=== PATIENT | male | born 1955 | race Caucasian/White ===

== ENCOUNTER 2016-11-20 05:47 | Observation (INO) | payer BC, MEDICAID ==
[2016-11-20] MEDS ORDERED: Aspirin 81 MG Tab.Chew PO ONE (06:00)
[2016-11-20] MEDS ORDERED: Metoprolol Tartrate 5 MG/5 ML SDV IVPUSH ONE ×3 (06:01→21:13)
[2016-11-20] MEDS ORDERED: Sodium Chloride 0.9% 10 ML Syringe FLUSH PRN (06:01)
[2016-11-20] MEDS ORDERED: Sodium Chloride 0.9% 2.5 ML Syringe FLUSH PRN (06:01)
--- NOTE | 2016-11-20 06:06 | EDM.PDOC ---
ED HPI GENERAL MEDICAL PROBLEM - General Chief Complaint: Chest Pain Stated Complaint: CHEST PAIN Time Seen by Provider: 11/20/16 05:48 - History of Present Illness INITIAL COMMENTS - FREE TEXT/NARRATIVE: HISTORY AND PHYSICAL: History of present illness: The patient is a 61-year-old male with a history of atrial fibrillation and is currently on Coumadin as well as metoprolol and diltiazem and presents with complaints of midsternal chest pain/pressure that started at 3 PM yesterday afternoon, 15 hours ago. He states that initially it was very dull and barely noticeable but is gradually increased through the course of the last 15 hours. At its peak it was a 9/10 and currently in the ER it as a 5/10. The pain has been constant. The patient has a history of A. fib and has been worked up with our boiler blower here and had an echo performed on August 04 of this year as well as a myocardial perfusion test that was performed on September 02. On the lateral test his EF was 22% with global hypokinesis and there seemed to be a mildly decreased perfusion along the inferior wall. His echo has also been reviewed by me. The patient states that about 3 weeks ago he had a heart catheter done in [place] and was told that he had no blockages. He has not had any medications adjusted since that heart catheter. Patient says this does not feel like he is having a heart attack but he is unsure of what this pain is. The pain does not radiate and he was not diaphoretic or short of breath. He has no leg pain or swelling no abdominal complaints no GI history and no recent fever chills coughing nausea or vomiting. The patient did not take any medication specifically for this pain prior to come here Patient states that the cardiologists have discussed with him his A. fib but there is never been any talk of trying to cardiovert or convert him. He states compliance with his medications. In reviewing his medication list he does take Lasix 80 mg daily Review of systems: As per history of present illness and below otherwise all systems reviewed and negative. Past medical history: As per history of present illness and as reviewed below otherwise noncontributory. Surgical history: As per history of present illness and as reviewed below otherwise noncontributory. Social history: No reported history of drug or alcohol abuse. Family history: As per history of present illness and as reviewed below otherwise noncontributory. Physical exam: General: Well-developed well-nourished man who is overweight and nontoxic speaking clearly and easily in the ED. He is not diaphoretic his vital signs have been noted by me. HEENT: Atraumatic, normocephalic, negative for conjunctival pallor or scleral icterus, mucous membranes moist, throat clear, neck supple, nontender, trachea midline. Lungs: Clear to auscultation, breath sounds equal bilaterally, chest nontender. No work or breathing or sensory muscle use Heart: S1S2, tachycardic rate ranging from 100-110 on my evaluation and he regularly irregular rhythm negative for clicks, rubs, or JVD. Abdomen: Soft, nondistended, nontender. Negative for masses or hepatosplenomegaly. Negative for costovertebral tenderness. Pelvis: Stable nontender. Genitourinary: Deferred. Rectal: Deferred. Extremities: Atraumatic, negative for cords or calf pain. Neurovascular unremarkable. No pedal edema or leg asymmetry Neuro: Awake, alert, oriented. Cranial nerves II through XII unremarkable. Cerebellum unremarkable. Motor and sensory unremarkable throughout. Exam nonfocal. Diagnostics: EKG CBC CMP INR troponin chest x-ray Therapeutics: IV O2 monitor Lopressor aspirin sublingual nitroglycerin GI cocktail Protonix 0655: Case was discussed with our hospitalist Dr. Park and all testing results have been discussed with the patient as well. We'll plan on observation admission. Initially the patient stated to me that he would more like to go home but realizes or concerns and is agreeable for an observation. In light of his complicated medical history Potential transfer to either [facility] or [place], where he had his heart catheter, was discussed and offered to him and he declines. Patient's heart rate is currently 98 and blood pressures been noted. He states that his discomfort has not changed with our interventions and the hospitalist is aware of this. Impression: Chest pain, A. fib with RVR with history of A. fib Definitive disposition and diagnosis as appropriate pending reevaluation and review of above. Anterior Chest Pain Score (Numeric/FACES): 6 - Related Data Allergies Allergy/AdvReac Type Severity Reaction Status Date / Time codeine Allergy Hives Verified 11/20/16 05:51 shellfish derived Allergy Hives Verified 11/20/16 05:51 Home Meds: Home Meds Furosemide 1 tab PO DAILY 04/23/15 [History] Metoprolol Tartrate 50 mg PO BID 04/23/15 [History] Warfarin Sodium [Jantoven] 7.5 mg PO DAILY 05/06/15 [History] Lisinopril 1 tab PO DAILY 11/20/16 [History] Past Medical History Other HEENT History: wears glasses Social & Family History - Tobacco Use Smoking Status *Q: Never Smoker Second Hand Smoke Exposure: No - Recreational Drug Use Recreational Drug Use: No Drug Use in Last 12 Months: No ED ROS GENERAL - Review of Systems Review Of Systems: ROS reveals no pertinent complaints other than HPI. ED EXAM, GENERAL - Physical Exam Exam: See Below (See dictation) Course - Vital Signs Last Recorded V/S: Last Vital Signs Temp 36.8 C 11/20/16 05:51 Pulse 78 11/20/16 06:55 Resp 16 11/20/16 06:55 BP 111/80 11/20/16 06:55 Pulse Ox 94 L 11/20/16 06:55 - Orders/Labs/Meds Orders: Active Orders 24 hr Category Date Time Status Patient Status [ADT] Stat ADT 11/20/16 06:57 Ordered Cardiac Monitoring [RC] . DIRECTED Care 11/20/16 06:00 Active EKG Documentation Completion [RC] STAT Care 11/20/16 06:00 Active Oxygen Therapy, ED [RC] ASDIRECTED Care 11/20/16 06:00 Active Pulse Oximetry [RC] ASDIRECTED Care 11/20/16 06:00 Active Chest 1V Frontal [CR] Stat Exams 11/20/16 06:00 Taken Sodium Chloride 0.9% [Saline Flush] Med 11/20/16 06:01 Active 10 ml FLUSH ASDIRECTED PRN Sodium Chloride 0.9% [Saline Flush] Med 11/20/16 06:01 Active 2.5 ml FLUSH ASDIRECTED PRN Saline Lock Insert [OM.PC] Stat Oth 11/20/16 06:00 Ordered Medication Orders Sodium Chloride (Saline Flush) 10 ml FLUSH ASDIRECTED PRN PRN Reason: Keep Vein Open Last Admin: 11/20/16 06:18 Dose: 10 ml Sodium Chloride (Saline Flush) 2.5 ml FLUSH ASDIRECTED PRN PRN Reason: Keep Vein Open Last Admin: 11/20/16 06:20 Dose: 2.5 ml Labs: Laboratory Tests 11/20/16 11/20/16 11/20/16 Range/Units 06:03 06:03 06:03 WBC 9.35 (4.0-11.0) K/uL RBC 4.81 (4.50-5.90) M/uL Hgb 14.5 (13.0-17.0) g/dL Hct 44.9 (38.0-50.0) % MCV 93.3 (80.0-98.0) fL MCH 30.1 (27.0-32.0) pg MCHC 32.3 (31.0-37.0) g/dL RDW Std Deviation 53.2 (28.0-62.0) fl RDW Coeff of Marli 16 H (11.0-15.0) % Plt Count 243 (150-400) K/uL MPV 10.70 (7.40-12.00) fL Neut % (Auto) 65.1 (48.0-80.0) % Lymph % (Auto) 22.8 (16.0-40.0) % [place] % (Auto) 11.0 (0.0-15.0) % Eos % (Auto) 0.9 (0.0-7.0) % Baso % (Auto) 0.2 (0.0-1.5) % Neut # (Auto) 6.1 H (1.4-5.7) K/uL Lymph # (Auto) 2.1 (0.6-2.4) K/uL [place] # (Auto) 1.0 H (0.0-0.8) K/uL Eos # (Auto) 0.1 (0.0-0.7) K/uL Baso # (Auto) 0.0 (0.0-0.1) K/uL Nucleated RBC % 0.0 /100WBC Nucleated RBCs # 0 K/uL INR 3.24 H (0.86-1.11) Sodium 141 (136-146) mmol/L Potassium 4.1 (3.5-5.1) mmol/L Chloride 111 H (98-110) mmol/L Carbon Dioxide 20 L (21-31) mmol/L BUN 22 (6.0-23.0) mg/dL Creatinine 1.1 (0.6-1.5) mg/dL Est Cr Clr Drug Dosing TNP Estimated GFR (MDRD) > 60.0 ml/min Glucose 119 H (60-110) mg/dL Calcium 9.3 (8.8-10.8) mg/dL Total Bilirubin 0.5 (0.1-1.5) mg/dL AST 20 (5-40) IU/L ALT 18 (8-54) IU/L Alkaline Phosphatase 94 (40-150) Troponin I (0.0-0.29) NG/ML Total Protein 7.2 (6.0-8.0) g/dL Albumin 3.8 (3.5-5.0) g/dL Globulin 3.4 (2.0-3.5) g/dL Albumin/Globulin Ratio 1.1 L (1.3-2.8) /06/27 Range/Units 06:03 WBC (4.0-11.0) K/uL RBC (4.50-5.90) M/uL Hgb (13.0-17.0) g/dL Hct (38.0-50.0) % MCV (80.0-98.0) fL MCH (27.0-32.0) pg MCHC (31.0-37.0) g/dL RDW Std Deviation (28.0-62.0) fl RDW Coeff of Marli (11.0-15.0) % Plt Count (150-400) K/uL MPV (7.40-12.00) fL Neut % (Auto) (48.0-80.0) % Lymph % (Auto) (16.0-40.0) % [place] % (Auto) (0.0-15.0) % Eos % (Auto) (0.0-7.0) % Baso % (Auto) (0.0-1.5) % Neut # (Auto) (1.4-5.7) K/uL Lymph # (Auto) (0.6-2.4) K/uL [place] # (Auto) (0.0-0.8) K/uL Eos # (Auto) (0.0-0.7) K/uL Baso # (Auto) (0.0-0.1) K/uL Nucleated RBC % /100WBC Nucleated RBCs # K/uL INR (0.86-1.11) Sodium (136-146) mmol/L Potassium (3.5-5.1) mmol/L Chloride (98-110) mmol/L Carbon Dioxide (21-31) mmol/L BUN (6.0-23.0) mg/dL Creatinine (0.6-1.5) mg/dL Est Cr Clr Drug Dosing Estimated GFR (MDRD) ml/min Glucose (60-110) mg/dL Calcium (8.8-10.8) mg/dL Total Bilirubin (0.1-1.5) mg/dL AST (5-40) IU/L ALT (8-54) IU/L Alkaline Phosphatase (40-150) Troponin I < 0.10 (0.0-0.29) NG/ML Total Protein (6.0-8.0) g/dL Albumin (3.5-5.0) g/dL Globulin (2.0-3.5) g/dL Albumin/Globulin Ratio (1.3-2.8) Meds: Medications Generic Name Dose Route Start Last Admin Trade Name Frefrederick PRN Reason Stop Dose Admin Sodium Chloride 10 ml 11/20/16 06:01 11/20/16 06:18 Saline Flush FLUSH 10 ml ASDIRECTED PRN Administration Keep Vein Open Sodium Chloride 2.5 ml 11/20/16 06:01 11/20/16 06:20 Saline Flush FLUSH 2.5 ml ASDIRECTED PRN Administration Keep Vein Open Discontinued Medications Generic Name Dose Route Start Last Admin Trade Name Freq PRN Reason Stop Dose Admin Aspirin 324 mg 11/20/16 06:00 11/20/16 06:15 Aspirin PO 11/20/16 06:01 324 mg ONETIME ONE Administration Al Hydroxide/Mg Hydroxide 15 0 ml 11/20/16 06:45 11/20/16 06:53 ml/ Metoclopramide HCl 5 mg/ PO 11/20/16 06:46 25 each Lidocaine HCl 5 ml ONETIME ONE Administration Metoprolol Tartrate 5 mg 11/20/16 06:01 11/20/16 06:40 Lopressor IVPUSH 11/20/16 06:02 5 mg ONETIME ONE Administration Nitroglycerin 0.4 mg 11/20/16 06:15 11/20/16 06:31 Nitrostat SL 11/20/16 06:26 0.4 mg Q5M COURTNEY Administration Pantoprazole Sodium 80 mg 11/20/16 06:56 Protonix Iv IVPUSH 11/20/16 06:57 .BOLUS ONE Departure - Departure Time of Disposition: 07:01 Disposition: Refer to Observation Condition: good Clinical Impression: Atrial fibrillation with RVR Chest pain Qualifiers: Chest pain type: unspecified Qualified Code(s): R07.9 - Chest pain, unspecified - Discharge Information Forms: ED Department Discharge - My Orders Last 24 Hours: My Active Orders 11/20/16 06:00 Cardiac Monitoring [RC] . DIRECTED EKG Documentation Completion [RC] STAT Oxygen Therapy, ED [RC] ASDIRECTED Pulse Oximetry [RC] ASDIRECTED Chest 1V Frontal [CR] Stat Saline Lock Insert [OM.PC] Stat 11/20/16 06:01 Sodium Chloride 0.9% [Saline Flush] 10 ml FLUSH ASDIRECTED PRN Sodium Chloride 0.9% [Saline Flush] 2.5 ml FLUSH ASDIRECTED PRN 11/20/16 06:57 Patient Status [ADT] Stat - Assessment/Plan Last 24 Hours: My Active Orders 11/20/16 06:00 Cardiac Monitoring [RC] . DIRECTED EKG Documentation Completion [RC] STAT Oxygen Therapy, ED [RC] ASDIRECTED Pulse Oximetry [RC] ASDIRECTED Chest 1V Frontal [CR] Stat Saline Lock Insert [OM.PC] Stat 11/20/16 06:01 Sodium Chloride 0.9% [Saline Flush] 10 ml FLUSH ASDIRECTED PRN Sodium Chloride 0.9% [Saline Flush] 2.5 ml FLUSH ASDIRECTED PRN 11/20/16 06:57 Patient Status [ADT] Stat
[2016-11-20] MEDS: Nitroglycerin 0.4 MG Tab.SL SL SCH ×3 (06:19→06:31)
[2016-11-20 06:42] LABS: CHLORIDE,CL 111 mmol/L (98-110); SODIUM,NA 141 mmol/L (136-146)
[2016-11-20] MEDS ORDERED: Alum Hydrox/Mag Hydrox/Simeth 15 ML, Metoclopramide 5 MG, Lidocaine 2% 5 ML PO ONE ×3 (06:45)
[2016-11-20] MEDS ORDERED: Pantoprazole 40 MG Vial IVPUSH ONE (06:56)
--- NOTE | 2016-11-20 10:32 | PCM.HP ---
H&P History of Present Illness - General Admit Problem/Dx: Admission Diagnosis/Problem Admission Diagnosis/Problem Chest pain - History of Present Illness Initial Comments - Free Text/Narative: 61-year-old male with a history of atrial fibrillation and HFrEF (EF 22%) admitted for chest pain. He sees Dr. 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 Butler as his PCP. He was on Coumadin, metoprolol and diltiazem. He presented to ED with midsternal chest pain/pressure that started that started 12 hours ago. He states that initially it was very dull and barely noticeable but is gradually increased through the course. At its peak it was a 9/10 and in the ER it as a 5/10. Now the pain is 2/10. The pain has been constant. He is still experiencing the pain. Patient has recently been seeing Dr. Mohamud for work-up of AF. He had an echo performed on August 04 of this year as well as a myocardial perfusion test that was performed on September 02. His EF on Myocardial Perfusion was 22% with global hypokinesis and there seemed to be a mildly decreased perfusion along the inferior wall. The patient states that about 3 weeks ago he had a heart catheter done in [place] and was told that he had no blockages. He has not had any medications adjusted since that heart catheter. Patient says this does not feel like he is having a heart attack but he is unsure of what this pain is. The pain does not radiate and he was not diaphoretic or short of breath. He has no leg pain or swelling no abdominal complaints no GI history and no recent fever chills coughing nausea or vomiting. The patient did not take any medication specifically for this pain prior to come here. He denies any other relevant PMH. His PSH includes Appendectomy as child, Knee surgery in may 2015 and lithotripsy in april 2016. He denies use of alcohol or tobacco. While In Ed he had EKG which revealed AF with HR 110. His CXR showed no acute changes. He was given Metoprolol IV 5 mg, Aspirin, Nitroglycerin 0.4 mg SL and Protonix IV. Anterior Chest Pain Score (Numeric/FACES): 3 - Related Data Allergies/Adverse Reactions: Allergies Allergy/AdvReac Type Severity Reaction Status Date / Time codeine Allergy Hives Verified 11/20/16 05:51 shellfish derived Allergy Hives Verified 11/20/16 05:51 Home Medications: Home Meds Furosemide 1 tab PO DAILY 04/23/15 [History] Metoprolol Tartrate 50 mg PO BID 04/23/15 [History] Warfarin Sodium [Jantoven] 7.5 mg PO DAILY 05/06/15 [History] Lisinopril 1 tab PO DAILY 11/20/16 [History] Past Medical History Other HEENT History: wears glasses Cardiovascular History: Reports: Afib Psychiatric History: Reports: None Dermatologic History: Reports: None - Infectious Disease History Infectious Disease History: Reports: Chicken pox, Measles - Past Surgical History Musculoskeletal Surgical History: Reports: Other (see below) Other Musculoskeletal Surgeries/Procedures:: left knee surgery Social & Family History - Tobacco Use Smoking Status *Q: Never Smoker Second Hand Smoke Exposure: No - Recreational Drug Use Recreational Drug Use: No Drug Use in Last 12 Months: No H&P Review of Systems - Review of Systems: Review Of Systems: See Below General: Reports: No Symptoms HEENT: Reports: No Symptoms Pulmonary: Reports: No Symptoms Cardiovascular: Reports: Chest Pain, Palpitations, Edema. Denies: Dyspnea on Exertion, Orthopnea, PND, Lightheadedness, Syncope Gastrointestinal: Reports: No Symptoms Genitourinary: Reports: No Symptoms Musculoskeletal: Reports: No Symptoms Skin: Reports: No Symptoms Psychiatric: Reports: No Symptoms Neurological: Reports: No Symptoms Hematologic/Lymphatic: Reports: No Symptoms Immunologic: Reports: No Symptoms Exam - Exam Exam: See Below - Vital Signs Vital Signs: Last Vital Signs Temp 36.8 C 11/20/16 05:51 Pulse 74 11/20/16 07:20 Resp 17 11/20/16 07:20 BP 108/78 11/20/16 07:20 Pulse Ox 94 L 11/20/16 07:20 Weight: 157 kg - Exam General: Alert, Oriented, Cooperative HEENT: Conjunctiva Clear, EACs Clear, EOMI, Hearing Intact, Mucosa Moist & [place] , Nares Patent, Pupils Equal, Pupils Reactive Neck: Supple, Trachea Midline, +2 Carotid Pulse wo Bruit Lungs: Clear to Auscultation, Normal Respiratory Effort Cardiovascular: Regular Rate, Irregular Rhythm Abdomen: Normal Bowel Sounds Back Exam: Normal Inspection Extremities: Normal Inspection Skin: Warm, Dry, Intact Neurological: Reflexes Equal Bilateral Neuro Extensive - Mental Status: Alert, Oriented x3 - Patient Data Result Diagrams: 11/20/16 06:03 11/20/16 06:03 *Q Meaningful Use (ADM) - VTE *Q VTE Criteria *Q: - Stroke *Q Stroke Criteria *Q: - AMI *Q AMI Criteria *Q: Problem List Initiated/Reviewed/Updated: Yes Orders Last 24hrs: Active Orders 24 hr Category Date Time Status Patient Status [ADT] Routine ADT 11/20/16 10:13 Ordered May Shower [RC] ASDIRECTED Care 11/20/16 10:13 Ordered Oxygen Therapy [RC] PRN Care 11/20/16 10:13 Ordered Telemetry Monitoring [Cardiac Monitoring] [RC] . Care 11/20/16 06:00 Active DIRECTED Up ad Yumiko [RC] ASDIRECTED Care 11/20/16 10:13 Ordered VTE/DVT Education [RC] PER UNIT ROUTINE Care 11/20/16 10:13 Ordered Vital Signs [RC] Q4H Care 11/20/16 10:13 Ordered Heart Healthy Diet [DIET] Diet 11/20/16 Breakfast Active Regular Diet [DIET] Diet 11/20/16 Lunch Ordered Resuscitation Status Routine Resus Stat 11/20/16 10:13 Ordered Medication Orders Sodium Chloride (Saline Flush) 10 ml FLUSH ASDIRECTED PRN PRN Reason: Keep Vein Open Last Admin: 11/20/16 06:18 Dose: 10 ml Sodium Chloride (Saline Flush) 2.5 ml FLUSH ASDIRECTED PRN PRN Reason: Keep Vein Open Last Admin: 11/20/16 06:20 Dose: 2.5 ml Assessment/Plan Comment:: Assessment: 1. Chest Pain -History of AF, HFrEF & recent coronary catheterization -currently 08/21 -vitals stable -Troponin negative -CXR no acute changes -telemetry readings shows AF with 80-90's -Patient states he was seen sent to [place] for Coronary Catheterization. According to patient o blockage was seen. 2. Atrial Fibrillation -presented to ED with RVR, received Metoprolol IV, rate stabilized -on Metoprolol 50 mg BID, Coumadin 7.5 mg daily, Lisinopril 10 mg daily 3. HFrEF -Echo done 08/04/16 shows EF 50% -Myocardial Perfusion Scan done 09/02/16 in [place] shows EF 22% -patient seen by Dr. Mohamud 4. Elevated INR, 3.24 -patient on Coumadin 7.5 mg daily Plan: 1. Admit for Observation 2. continue telemetry 3. serial troponin every 8 hours for total 3 readings 4. continue Metoprolol, Lisinopril & Lasix 5. Due to elevated INR we will hold his Coumadin and repeat INR tomorrow 6. for GI prophylaxis will start Pantoprazole 40 mg BID 7. strict I&O's and daily weight checks 8. as per orders
[2016-11-20] MEDS ORDERED: Lisinopril 10 MG Tab PO SCH ×2 (11:15→11:20)
[2016-11-20] MEDS ORDERED: Metoprolol Tartrate 25 MG Tab PO SCH (11:15)
[2016-11-20] MEDS ORDERED: Furosemide 80 MG Tab PO SCH (11:15)
[2016-11-20] MEDS: Furosemide 80 MG Tab PO SCH (12:30)
[2016-11-20] MEDS: Lisinopril 10 MG Tab PO SCH (13:16)
--- NOTE | 2016-11-20 14:19 | PCM.SN ---
- Free Text/Narrative Note: I interviewed and examined patient. He has a feeling of abdominal bloating. He thinks that he might have been told once that he had gall stones. He has a decreased appetite. He had one prior similar episode in the past associated with relief after vomiting. He has very minimal nausea now. Exam: abdomen soft and non tender but the area of discomfort seems to correspond to the epigastric region. will order: simethicone abdominal CT abdominal ultrasound Ritesh Park MD
[2016-11-20] MEDS ORDERED: Simethicone 80 MG Tab.Chew PO ONE (14:30)
[2016-11-20] MEDS: Pantoprazole 40 MG Tab.CR PO SCH (16:17)
[2016-11-20] MEDS ORDERED: Simethicone 80 MG Tab.Chew PO SCH (17:00)
[2016-11-20] MEDS ORDERED: Metoprolol Tartrate 5 MG in Sodium Chloride 0.9% 50 ML IV ONE (17:51)
[2016-11-20] MEDS ORDERED: Tamsulosin 0.4 MG Cap.ER PO ONE (17:52)
[2016-11-20] MEDS ORDERED: Morphine 2 MG/ML Syringe IVPUSH PRN (17:55)
[2016-11-20] MEDS: HYDROmorphone 2 MG/ML Syringe IVPUSH PRN ×2 (18:27→21:53)
[2016-11-20 18:35] LABS: CHLORIDE,CL 109 mmol/L (98-110); SODIUM,NA 141 mmol/L (136-146)
--- NOTE | 2016-11-20 19:47 | PCM.SN ---
- Free Text/Narrative Note: He is feeling better. CT c/w small distal ureteral stone and cholelithiasis; equivocal for cholecystitis; gallbladder wall thickening. After the CT he believes that he passed a small stone that he saw in his urine. He is feeling better. We discussed the possibility of biliary colic. will treat conservatively for now. Possible discharge tomorrow. Ritesh Park MD
--- NOTE | 2016-11-20 19:58 | CR ---
EXAM DATE: 11/20/16 PATIENT'S AGE: 61 Patient: PRAVIN BYRD Facility: [place], [place] Site . Site : [id number] Study: XRay Chest [id number] 6:18:18 AM Ordering Physician: Doctor Chaney Final Report: INDICATION: Chest pain COMPARISON: none TECHNIQUE: Portable AP erect chest performed at 6:08 a.m. FINDINGS: The lungs are clear. There is mild cardiac enlargement. The pulmonary vasculature shows central engorgement but there is no evidence of interstitial edema. There is no evidence of pleural fluid. There are no suspicious infiltrates or masses. There is no evidence of pneumothorax. IMPRESSION: Mild cardiomegaly and central pulmonary vascular congestion. Dictated by Stephane García MD @ Nov 20 2016 6:27AM (Electronic Signature) Report Signed by Proxy. KERRI
[2016-11-20] MEDS ORDERED: Metoprolol Tartrate 50 MG Tab PO SCH ×2 (20:00→21:00)
[2016-11-20] MEDS: Metoprolol Tartrate 50 MG Tab PO SCH (20:30)
[2016-11-20] MEDS ORDERED: Promethazine 25 MG/ML SDV IM PRN (21:33)
[2016-11-21 05:45] LABS: CHLORIDE,CL 107 mmol/L (98-110); SODIUM,NA 142 mmol/L (136-146)
[2016-11-21] MEDS: Pantoprazole 40 MG Tab.CR PO SCH ×2 (06:43→17:25)
[2016-11-21] MEDS: Furosemide 80 MG Tab PO SCH (08:27)
[2016-11-21] MEDS: Metoprolol Tartrate 50 MG Tab PO SCH ×2 (08:27→21:04)
[2016-11-21] MEDS: Lisinopril 10 MG Tab PO SCH (08:27)
[2016-11-21] MEDS ORDERED: Lisinopril 10 MG Tab PO SCH ×2 (09:00→13:00)
[2016-11-21] MEDS: Ciprofloxacin in D5W 400 MG in Premix Bag 1 BAG IV SCH ×4 (11:26→21:41)
[2016-11-21] MEDS: metroNIDAZOLE/Normal Saline 500 MG in Premix Bag 1 BAG IV SCH ×3 (12:47→23:01)
--- NOTE | 2016-11-21 14:36 | PCM.PN ---
- General Info Date of Service: 11/21/16 Admission Dx/Problem (Free Text): Admission Diagnosis/Problem Admission Diagnosis/Problem Chest pain Functional Status: Reports: pain controlled, tolerating diet, ambulating, urinating - Review of Systems General: Reports: No Symptoms HEENT: Reports: no symptoms Pulmonary: Reports: no symptoms Cardiovascular: Reports: No Symptoms Gastrointestinal: Reports: No symptoms Genitourinary: Reports: no symptoms Musculoskeletal: Reports: no symptoms Skin: Reports: no symptoms Neurological: Reports: No Symptoms Psychiatric: Reports: no symptoms - Patient Data Vitals - most recent: Last Vital Signs Temp 37.3 C 11/21/16 11:58 Pulse 100 11/21/16 11:58 Resp 22 H 11/21/16 11:58 BP 113/62 11/21/16 11:58 Pulse Ox 94 L 11/21/16 11:58 Weight - most recent: 157 kg I&O - last 24 hours: Intake & Output 11/20/16 11/21/16 11/21/16 22:59 06:59 14:59 Intake Total 700 100 Output Total 800 50 Balance -100 50 Lab Results last 24 hrs: Laboratory Results - last 24 hr 11/20/16 11/20/16 11/20/16 Range/Units 18:00 18:00 18:00 WBC 11.90 H (4.0-11.0) K/uL RBC 4.92 (4.50-5.90) M/uL Hgb 15.0 (13.0-17.0) g/dL Hct 45.8 (38.0-50.0) % MCV 93.1 (80.0-98.0) fL MCH 30.5 (27.0-32.0) pg MCHC 32.8 (31.0-37.0) g/dL RDW Std Deviation 53.6 (28.0-62.0) fl RDW Coeff of Marli 16 H (11.0-15.0) % Plt Count 235 (150-400) K/uL MPV 10.60 (7.40-12.00) fL Neut % (Auto) 77.7 (48.0-80.0) % Lymph % (Auto) 12.5 L (16.0-40.0) % [place] % (Auto) 9.3 (0.0-15.0) % Eos % (Auto) 0.4 (0.0-7.0) % Baso % (Auto) 0.1 (0.0-1.5) % Neut # (Auto) 9.2 H (1.4-5.7) K/uL Lymph # (Auto) 1.5 (0.6-2.4) K/uL [place] # (Auto) 1.1 H (0.0-0.8) K/uL Eos # (Auto) 0.1 (0.0-0.7) K/uL Baso # (Auto) 0.0 (0.0-0.1) K/uL Nucleated RBC % 0.0 /100WBC Nucleated RBCs # 0 K/uL INR (0.86-1.11) Sodium 141 (136-146) mmol/L Potassium 4.3 (3.5-5.1) mmol/L Chloride 109 (98-110) mmol/L Carbon Dioxide 21 (21-31) mmol/L BUN 18 (6.0-23.0) mg/dL Creatinine 1.2 (0.6-1.5) mg/dL Est Cr Clr Drug Dosing 72.75 mL/min Estimated GFR (MDRD) > 60.0 ml/min Glucose 122 H (60-110) mg/dL Calcium 9.6 (8.8-10.8) mg/dL Troponin I < 0.10 (0.0-0.29) NG/ML 11/21/16 11/21/16 11/21/16 Range/Units 04:55 04:55 04:55 WBC 13.12 H (4.0-11.0) K/uL RBC 4.88 (4.50-5.90) M/uL Hgb 14.7 (13.0-17.0) g/dL Hct 45.6 (38.0-50.0) % MCV 93.4 (80.0-98.0) fL MCH 30.1 (27.0-32.0) pg MCHC 32.2 (31.0-37.0) g/dL RDW Std Deviation 53.6 (28.0-62.0) fl RDW Coeff of Marli 16 H (11.0-15.0) % Plt Count 226 (150-400) K/uL MPV 10.50 (7.40-12.00) fL Neut % (Auto) 74.6 (48.0-80.0) % Lymph % (Auto) 13.0 L (16.0-40.0) % [place] % (Auto) 12.0 (0.0-15.0) % Eos % (Auto) 0.2 (0.0-7.0) % Baso % (Auto) 0.2 (0.0-1.5) % Neut # (Auto) 9.8 H (1.4-5.7) K/uL Lymph # (Auto) 1.7 (0.6-2.4) K/uL [place] # (Auto) 1.6 H (0.0-0.8) K/uL Eos # (Auto) 0.0 (0.0-0.7) K/uL Baso # (Auto) 0.0 (0.0-0.1) K/uL Nucleated RBC % 0.0 /100WBC Nucleated RBCs # 0 K/uL INR 2.89 H (0.86-1.11) Sodium 142 (136-146) mmol/L Potassium 4.5 (3.5-5.1) mmol/L Chloride 107 (98-110) mmol/L Carbon Dioxide 24 (21-31) mmol/L BUN 18 (6.0-23.0) mg/dL Creatinine 1.2 (0.6-1.5) mg/dL Est Cr Clr Drug Dosing 72.75 mL/min Estimated GFR (MDRD) > 60.0 ml/min Glucose 114 H (60-110) mg/dL Calcium 9.5 (8.8-10.8) mg/dL Troponin I (0.0-0.29) NG/ML Med Orders - Current: Current Medications Furosemide (Lasix) 80 mg PO DAILY [facility] Last Admin: 11/21/16 08:27 Dose: 80 mg Hydromorphone HCl (Dilaudid) 2 mg IVPUSH Q2H PRN PRN Reason: Pain Last Admin: 11/20/16 21:53 Dose: 2 mg Ciprofloxacin/Dextrose 400 mg/ (Premix) 200 mls @ 200 mls/hr IV Q12H [facility] Last Admin: 11/21/16 11:26 Dose: 200 mls/hr Metronidazole 500 mg/ Premix 100 mls @ 100 mls/hr IV QID [facility] Last Admin: 11/21/16 12:47 Dose: 100 mls/hr Lisinopril (Prinivil) 10 mg PO DAILY [facility] Last Admin: 11/21/16 08:27 Dose: 10 mg Metoprolol Tartrate (Lopressor) 50 mg PO Q12HR [facility] Last Admin: 11/21/16 08:27 Dose: 50 mg Pantoprazole Sodium (Protonix) 40 mg PO BIDAC [facility] Last Admin: 11/21/16 06:43 Dose: 40 mg Promethazine HCl (Phenergan) 25 mg IM Q6H PRN PRN Reason: Nausea/Vomiting Last Admin: 11/20/16 21:52 Dose: 25 mg Sodium Chloride (Saline Flush) 10 ml FLUSH ASDIRECTED PRN PRN Reason: Keep Vein Open Last Admin: 11/20/16 06:18 Dose: 10 ml Sodium Chloride (Saline Flush) 2.5 ml FLUSH ASDIRECTED PRN PRN Reason: Keep Vein Open Last Admin: 11/20/16 06:20 Dose: 2.5 ml Warfarin Sodium (Coumadin) 5 mg PO DAILY@1400 [facility] Discontinued Medications Aspirin (Aspirin) 324 mg PO ONETIME ONE Stop: 11/20/16 06:01 Last Admin: 11/20/16 06:15 Dose: 324 mg Al Hydroxide/Mg Hydroxide 15 ml/ Metoclopramide HCl 5 mg/Lidocaine HCl 5 ml 0 ml PO ONETIME ONE Stop: 11/20/16 06:46 Last Admin: 11/20/16 06:53 Dose: 25 each Furosemide (Lasix) mg PO DAILY [facility] Lisinopril (Prinivil) mg PO DAILY [facility] Lisinopril (Prinivil) 10 mg PO DAILY [facility] Lisinopril (Prinivil) 10 mg PO DAILY [facility] Lisinopril (Prinivil) 10 mg PO DAILY [facility] Metoprolol Tartrate (Lopressor) 5 mg IVPUSH ONETIME ONE Stop: 11/20/16 06:02 Last Admin: 11/20/16 06:40 Dose: 5 mg Metoprolol Tartrate (Lopressor) 50 mg PO Q12HR [facility] Metoprolol Tartrate (Lopressor) 50 mg PO BID [facility] Last Admin: 11/20/16 11:29 Dose: Not Given Metoprolol Tartrate (Lopressor) 50 mg PO Q12HR [facility] Metoprolol Tartrate (Lopressor) 5 mg IVPUSH ONETIME ONE Stop: 11/20/16 18:02 Last Admin: 11/20/16 18:26 Dose: 5 mg Metoprolol Tartrate (Lopressor) 5 mg IVPUSH ONETIME ONE Stop: 11/20/16 21:14 Last Admin: 11/21/16 01:21 Dose: 5 mg Nitroglycerin (Nitrostat) 0.4 mg SL Q5M [facility] Stop: 11/20/16 06:26 Last Admin: 11/20/16 06:31 Dose: 0.4 mg Pantoprazole Sodium (Protonix Iv) 80 mg IVPUSH .BOLUS ONE Stop: 11/20/16 06:57 Last Admin: 11/20/16 07:02 Dose: 80 mg Simethicone (Simethicone) 160 mg PO ONETIME ONE Stop: 11/20/16 14:31 Last Admin: 11/20/16 16:13 Dose: 160 mg Tamsulosin HCl (Flomax) 0.4 mg PO ONETIME ONE Stop: 11/20/16 17:53 Last Admin: 11/20/16 18:26 Dose: 0.4 mg - Exam General: alert, oriented HEENT: Pupils equal, Pupils reactive Neck: supple, no JVD Lungs: Normal respiratory effort, Decreased breath sounds Cardiovascular: Irregular Rhythm Abdomen: bowel sounds present, no tenderness. No: rebound, guarding, tenderness Extremities: no edema Neurological: no new focal deficit - Problem List Review Problem List Initiated/Reviewed/Updated: Yes - My Orders Last 24 Hours: My Active Orders 11/20/16 13:15 Lisinopril [Prinivil] 10 mg PO DAILY 11/20/16 17:00 Pantoprazole [ProTONIX] 40 mg PO BIDAC 11/20/16 17:58 Strain Urine [RC] ASDIRECTED 11/20/16 18:02 HYDROmorphone [Dilaudid] 2 mg IVPUSH Q2H PRN 11/20/16 21:00 Metoprolol Tartrate [Lopressor] 50 mg PO Q12HR 11/21/16 09:00 Communication Order [RC] ROUTINE - Plan Plan:: Assessment: 1. Biliary Colic -presence of gallstones with GB wall thickening but no visible obstruction or CBD thickening -leukocytosis, slightly worst from yesterday -no fever, chills, nausea, vomiting, appetite loss 2. Chest Pain, resolved -History of AF, HFrEF & recent coronary catheterization -vitals stable -Troponin negative -CXR no acute changes -telemetry readings shows AF with 90-130 3. Atrial Fibrillation -presented to ED with RVR, received Metoprolol IV, rate stabilized -on Metoprolol 50 mg BID and Lisinopril 10 mg daily -Coumadin held bc of elevated INR 4. HFrEF -patient sees physical therapy teacher Dr. Mohamud -Echo done 08/04/16 shows EF 50% -Myocardial Perfusion Scan done 09/02/16 in [place] shows EF 22% -Patient states he was seen sent to [place] for Coronary Catheterization. According to patient no blockage was seen. 5. Elevated INR, now normalized at 2.89 -Coumadin was held yesterday Plan: 1. Biliary Colic -Patient states he is doing much better but due to increase of WBC count since yesterday we decided to monitor the patient for at least 1 more day. Due to patients HF and current INR he is high risk for surgery. -we will start Ciprofloxacin and Metronidiazole -continue to monitor labs and temperature -If leukocytosis improves then we will consider DC tomorrow and refer him to surgery as outpatient 2. Chest Pain, AF & HFrEF -continue telemetry -continue Metoprolol, Lisinopril and Lasix -continue I&O and daily weight checks 3. Elevated INR, Now improved -restart Coumadin tomorrow -repeat PT/INR in AM 4. as per orders
[2016-11-21] MEDS ORDERED: Metoprolol Tartrate 5 MG/5 ML SDV IVPUSH PRN (21:52)
[2016-11-22] MEDS: metroNIDAZOLE/Normal Saline 500 MG in Premix Bag 1 BAG IV SCH (05:45)
[2016-11-22] MEDS: Pantoprazole 40 MG Tab.CR PO SCH (07:15)
[2016-11-22] MEDS: Metoprolol Tartrate 50 MG Tab PO SCH (09:10)
[2016-11-22] MEDS: Lisinopril 10 MG Tab PO SCH (09:10)
[2016-11-22] MEDS: Furosemide 80 MG Tab PO SCH (09:10)
[2016-11-22 09:11] VITALS: BP 106/61
[2016-11-22] MEDS: Ciprofloxacin in D5W 400 MG in Premix Bag 1 BAG IV SCH ×2 (10:16)
--- NOTE | 2016-11-22 10:28 | PCM.DCSUM1 ---
Discharge Summary - Hospital Course Brief History: he was admitted with chest pain. - Discharge Data Discharge Date: 11/22/16 Discharge Disposition: Home, Self-Care 01 Condition: Fair - Patient Summary/Data Hospital Course: serial troponins were normal. CT abdomen / pelvis and abdominal ultrasound indicated cholelithiasis. It was uncertain if there was acute cholecystitis. His pain resolved on a clear liquid diet. He was advised regarding his diagnosis and is advised to avoid large meals and avoid fatty spicy foods. as a precaution he is prescribed flagyl 500 mg tid x five days and cipro 500 mg bid x five days. His INR was over 3 when admitted but is in the low therapeutic range at discharge. As cipro may increase INR when combined with warfarin, he was advised to skip warfarin today and restart tomorrow. I advised follow up with DR Whitfield and Dr Carlos, cardiology, to discuss whether he should undergo cholecystectomy. Ritesh scott MD - Patient Instructions Diet, Other: low fat bland; small meals - Discharge Plan Prescriptions/Med Rec: Ciprofloxacin HCl [Cipro] 500 mg PO BID #10 tablet metroNIDAZOLE [Flagyl] 500 mg PO Q8H #15 tablet Home Medications: Home Meds Furosemide 1 tab PO DAILY 04/23/15 [History] Metoprolol Tartrate 50 mg PO BID 04/23/15 [History] Warfarin Sodium [Jantoven] 7.5 mg PO DAILY 05/06/15 [History] Lisinopril 1 tab PO DAILY 11/20/16 [History] Ciprofloxacin HCl [Cipro] 500 mg PO BID #10 tablet 11/22/16 [Rx] metroNIDAZOLE [Flagyl] 500 mg PO Q8H #15 tablet 11/22/16 [Rx] Patient Handouts: Nonspecific Chest Pain, [id number] Referrals: [facility] [Outside] Philipp Butler DO [Physician] - Emanuel Mohamud MD [Physician] - PCP,None [Primary Care Provider] - - Patient Data Vitals - Most Recent: Last Vital Signs Temp 98.8 F 11/22/16 04:00 Pulse 96 11/22/16 09:10 Resp 20 11/22/16 04:00 BP 106/61 11/22/16 09:10 Pulse Ox 94 L 11/22/16 04:00 Weight - Most Recent: 157 kg I&O - Last 24 hours: Intake & Output 11/21/16 11/22/16 11/22/16 22:59 06:59 14:59 Intake Total 1250 200 Output Total 1250 Balance 0 200 Lab Results - Last 24 hrs: Laboratory Results - last 24 hr 11/22/16 11/22/16 11/22/16 Range/Units 04:57 04:57 04:57 WBC 11.69 H (4.0-11.0) K/uL RBC 4.67 (4.50-5.90) M/uL Hgb 14.1 (13.0-17.0) g/dL Hct 43.4 (38.0-50.0) % MCV 92.9 (80.0-98.0) fL MCH 30.2 (27.0-32.0) pg MCHC 32.5 (31.0-37.0) g/dL RDW Std Deviation 53.4 (28.0-62.0) fl RDW Coeff of Marli 16 H (11.0-15.0) % Plt Count 221 (150-400) K/uL MPV 11.30 (7.40-12.00) fL Add Manual Diff YES Neutrophils % (Manual) 63 (48.0-80.0) % Lymphocytes % (Manual) 23 (16.0-40.0) % Monocytes % (Manual) 13 (0.0-15.0) % Basophils % (Manual) 1 (0.0-1.5) % Nucleated RBC % 0.0 /100WBC Absolute Seg Neuts 7.4 Lymphocytes # (Manual) 2.7 Monocytes # (Manual) 1.5 Basophils # (Manual) 0 Nucleated RBCs # 0 K/uL INR 2.34 H (0.86-1.11) Sodium 141 (136-146) mmol/L Potassium 3.8 (3.5-5.1) mmol/L Chloride 108 (98-110) mmol/L Carbon Dioxide 23 (21-31) mmol/L BUN 21 (6.0-23.0) mg/dL Creatinine 1.3 (0.6-1.5) mg/dL Est Cr Clr Drug Dosing 67.15 mL/min Estimated GFR (MDRD) 56.5 ml/min Glucose 95 (60-110) mg/dL Calcium 8.8 (8.8-10.8) mg/dL Magnesium 1.6 (1.5-2.3) mEq/L Total Bilirubin 2.3 H (0.1-1.5) mg/dL AST 20 (5-40) IU/L ALT 20 (8-54) IU/L Alkaline Phosphatase 84 (40-150) Total Protein 6.3 (6.0-8.0) g/dL Albumin 3.5 (3.5-5.0) g/dL Globulin 2.8 (2.0-3.5) g/dL Albumin/Globulin Ratio 1.3 (1.3-2.8) Med Orders - Current: Current Medications Furosemide (Lasix) 80 mg PO DAILY [facility] Last Admin: 11/22/16 09:10 Dose: 80 mg Hydromorphone HCl (Dilaudid) 2 mg IVPUSH Q2H PRN PRN Reason: Pain Last Admin: 11/20/16 21:53 Dose: 2 mg Ciprofloxacin/Dextrose 400 mg/ (Premix) 200 mls @ 200 mls/hr IV Q12H [facility] Last Admin: 11/22/16 10:16 Dose: 200 mls/hr Metronidazole 500 mg/ Premix 100 mls @ 100 mls/hr IV QID [facility] Last Admin: 11/22/16 05:45 Dose: 100 mls/hr Lisinopril (Prinivil) 10 mg PO DAILY [facility] Last Admin: 11/22/16 09:10 Dose: 10 mg Metoprolol Tartrate (Lopressor) 50 mg PO Q12HR [facility] Last Admin: 11/22/16 09:10 Dose: 50 mg Metoprolol Tartrate (Lopressor) 5 mg IVPUSH Q4H PRN PRN Reason: Other Pantoprazole Sodium (Protonix) 40 mg PO BIDAC [facility] Last Admin: 11/22/16 07:15 Dose: 40 mg Promethazine HCl (Phenergan) 25 mg IM Q6H PRN PRN Reason: Nausea/Vomiting Last Admin: 11/20/16 21:52 Dose: 25 mg Sodium Chloride (Saline Flush) 10 ml FLUSH ASDIRECTED PRN PRN Reason: Keep Vein Open Last Admin: 11/20/16 06:18 Dose: 10 ml Sodium Chloride (Saline Flush) 2.5 ml FLUSH ASDIRECTED PRN PRN Reason: Keep Vein Open Last Admin: 11/20/16 06:20 Dose: 2.5 ml Warfarin Sodium (Coumadin) 5 mg PO DAILY@1400 [facility] Discontinued Medications Aspirin (Aspirin) 324 mg PO ONETIME ONE Stop: 11/20/16 06:01 Last Admin: 11/20/16 06:15 Dose: 324 mg Al Hydroxide/Mg Hydroxide 15 ml/ Metoclopramide HCl 5 mg/Lidocaine HCl 5 ml 0 ml PO ONETIME ONE Stop: 11/20/16 06:46 Last Admin: 11/20/16 06:53 Dose: 25 each Furosemide (Lasix) mg PO DAILY [facility] Lisinopril (Prinivil) mg PO DAILY [facility] Lisinopril (Prinivil) 10 mg PO DAILY [facility] Lisinopril (Prinivil) 10 mg PO DAILY [facility] Lisinopril (Prinivil) 10 mg PO DAILY [facility] Metoprolol Tartrate (Lopressor) 5 mg IVPUSH ONETIME ONE Stop: 11/20/16 06:02 Last Admin: 11/20/16 06:40 Dose: 5 mg Metoprolol Tartrate (Lopressor) 50 mg PO Q12HR [facility] Metoprolol Tartrate (Lopressor) 50 mg PO BID [facility] Last Admin: 11/20/16 11:29 Dose: Not Given Metoprolol Tartrate (Lopressor) 50 mg PO Q12HR [facility] Metoprolol Tartrate (Lopressor) 5 mg IVPUSH ONETIME ONE Stop: 11/20/16 18:02 Last Admin: 11/20/16 18:26 Dose: 5 mg Metoprolol Tartrate (Lopressor) 5 mg IVPUSH ONETIME ONE Stop: 11/20/16 21:14 Last Admin: 11/21/16 01:21 Dose: 5 mg Nitroglycerin (Nitrostat) 0.4 mg SL Q5M [facility] Stop: 11/20/16 06:26 Last Admin: 11/20/16 06:31 Dose: 0.4 mg Pantoprazole Sodium (Protonix Iv) 80 mg IVPUSH .BOLUS ONE Stop: 11/20/16 06:57 Last Admin: 11/20/16 07:02 Dose: 80 mg Simethicone (Simethicone) 160 mg PO ONETIME ONE Stop: 11/20/16 14:31 Last Admin: 11/20/16 16:13 Dose: 160 mg Tamsulosin HCl (Flomax) 0.4 mg PO ONETIME ONE Stop: 11/20/16 17:53 Last Admin: 11/20/16 18:26 Dose: 0.4 mg *Q Meaningful Use (DIS) - VTE *Q VTE Criteria *Q: - Stroke *Q Stroke Criteria *Q: - AMI *Q AMI Criteria *Q:
[2016-11-22] MEDS ORDERED: Warfarin 5 MG Tab PO SCH (14:00)
--- NOTE | 2016-11-23 13:33 | CT ---
EXAM DATE: 11/20/16 PATIENT'S AGE: 61 Patient: PRAVIN BYRD Facility: [place], [place] Site . Site : 1955 Study: CT Abdomen/Pelvis [id number] 3:20:18 PM Ordering Physician: Xavier Awad Final Report: INDICATION: Abdominal bloating; upper abdominal pain. Comparison: None. Technique: CT abdomen and pelvis without intravenous contrast; coronal and sagittal reformats. Findings: No abnormal intra pulmonary nodular densities through the lung bases. No evidence of pleural effusion. Mild cardiomegaly without any evidence of pericardial effusion. No focal hepatic or splenic pathology. No pancreatic pathology. Cholelithiasis. Thickening of the gallbladder wall; rule out acute cholecystitis. No adrenal pathology. Nonobstructing renal calculi upper and mid calices right kidney. Stones identified in the left intrarenal collecting system as well as the left renal pelvis. 3 mm stone identified in the left distal ureter 1 cm above the ureterovesical junction causing moderate hydronephrosis and hydroureter on the left side. No retroperitoneal lymphadenopathy. No evidence of abdominal or pelvic ascites. CT study of the pelvis is unremarkable. A ventral hernia involving the left lower quadrant of the abdomen with mesenteric fat as its content. Impression: 3 mm stone just above the left ureterovesical junction causing hydronephrosis and hydroureter. 1. Renal calculi both kidneys. 2. Cholelithiasis with thickening of the wall of the gallbladder; rule out cholecystitis; suggest obtaining a technetium Choletec hepato maria isabel scintigraphy. 3. Ventral hernia left lower quadrant of the abdomen with mesenteric fat as its content. 4. Mild cardiomegaly. Dictated by Ann Martinez MD @ Nov 20 2016 3:23PM (Electronic Signature) Report Signed by Proxy. KERRI
--- NOTE | 2016-11-23 14:14 | US ---
EXAM DATE: 11/20/16 PATIENT'S AGE: 61 Patient: PRAVIN BYRD Facility: [place], [place] Site . Site : 1955 Study: US Abdomen [id number]/[id number] 4:04:38 PM Ordering Physician: Xavier Awad Final Report: HISTORY: 61-year-old with upper abdominal pain. TECHNIQUE: Grayscale ultrasound examination of the abdomen and retroperitoneum was performed. COMPARISON: Noncontrast CT of the abdomen and pelvis performed 11/20/2016. FINDINGS: Liver appears sonographically within normal limits demonstrating smooth contour and normal echogenicity. There is no significant biliary distention and the common bile duct measures 3.5 mm. There is no ascites. The gallbladder is contracted and contains multiple stones. Gallbladder wall is thickened, however there is no sonographic Ag`s sign. Right kidney measures 11.8 cm there is no sonographic evidence for hydronephrosis, mass, or stone. The visualized portions of the pancreas are sonographically unremarkable. IMPRESSION: 1. Cholelithiasis with gallbladder wall thickening, however no sonographic Ag sign is appreciated at time of examination. These findings are equivocal for cholecystitis, and if clinically warranted further evaluation with nuclear Medicine hepatobiliary scan may be helpful. Dictated by Kale Sheehan MD @ Nov 20 2016 4:24PM (Electronic Signature) Report Signed by Proxy. KERRI
== END 2016-11-22 11:45 | disposition home or self-care (01) ==
LOC: MW.ED 05:47 → MW.MS 06:57
PROVIDERS: ADMIT Family Medicine; ATTEND Family Medicine
DX: R07.89 Other chest pain (principal); I48.91 Unspecified atrial fibrillation; R79.1 Abnormal coagulation profile; K80.20 Calculus of gallbladder without cholecystitis without obstruction; N20.1 Calculus of ureter; R14.0 Abdominal distension (gaseous); Z79.01 Long term (current) use of anticoagulants; Z79.899 Other long term (current) drug therapy
CPT/HCPCS: 36415; 71010; 74176; 76705; 80048; 80053; 83735; 84484; 85025; 85610; 93005; 96374; 99285; A9270; C9113; J0744; J1170; J2550; 96365; 96366; 96367; 96372; 96375; 96376; G0378

== ENCOUNTER 2017-03-25 18:22 | Emergency (ER) | payer MEDICAID, OTHER ==
--- NOTE | 2017-03-25 18:57 | EDM.PDOC ---
ED HPI GENERAL MEDICAL PROBLEM - General Chief Complaint: Respiratory Problem Stated Complaint: COUGHING WITH BLOOD Time Seen by Provider: 03/25/17 18:56 Source of Information: Reports: Patient History Limitations: Reports: No Limitations - History of Present Illness INITIAL COMMENTS - FREE TEXT/NARRATIVE: HISTORY AND PHYSICAL: []61-year-old male presenting with coughing with small streaks of blood in it today History of Present Illness: []Patient states he has been sick for the last 3 weeks with increasing cough. Has had chills and felt warm. Today patient dated he had small amount of blood when he coughed hard. Patient currently is on Coumadin for atrial fibrillation Patient has underlying diagnosis of congestive heart failure. Patient has Dr. Butler for primary care, he sees Dr. Bermudez Patient states he is scheduled for a defibrillator placement in a week. He has history of atrial fibrillation with rapid ventricular response Medical history includes Coumadin, metoprolol, Lasix Review of Systems: As per history of present illness and below otherwise all systems reviewed and negative. Past medical history: As per history of present illness and as reviewed below otherwise noncontributory. Surgical history: As per history of present illness and as reviewed below otherwise noncontributory. Social history: No reported history of drug or alcohol abuse. Family history: As per history of present illness and as reviewed below otherwise noncontributory. Physical exam: Overweight gentleman answering questions appropriately in full sentences without shortness of breath. Nontoxic. HEENT: Atraumatic, normocehpalic, pupils reactive, negative for conjunctival pallor or scleral icterus, mucous membranes moist, throat clear, neck supple, nontender, trachea midline. Lungs: Clear to auscultation, breath sounds equal bilaterally, chest non tender. Heart: S1S2, regular, negative for clicks, rubs, or JVD. Abdomen: Soft, nondistended, nontender. Negative for masses or hepatossplenmegaly. Negative for costovertebral tenderness. Pelvis: Stable nontender. Genitourinary: Deferred. Rectal: Deferred Extremities: Atraumatic, negative for cords or calf pain. Neurovascular unremarkable. Neuro: Awake, alert, oriented. Cranial nerves II through XII unremarkable. Cerebellum unremarkable. Motor and sensory unremarkable throughout. Exam nonfocal. Discussed with the patient his hemoptysis, his history of atrial fibrillation, and discussed the he could be observed overnight here at the hospital. Patient is adamant that he wishes to go home and will return should his symptoms worsen. Have discussed the stability of worsening symptoms increasing chest pain atrial fibrillation, AL, stroke, worsening heart failure. Having full information he should have Diagnostics: []CBC CMP chest x-ray Therapeutics: [DuoNeb ] Impression: [Acute bronchitis COPD Congestive heart failure] Hemoptysis Plan: [Discharged to home Prescription written for cephnadir 300 mg bid for 10 days Tessalon Perles 100 mg up to 4 times a day when necessary cough #[address] Butler tomorrow for follow-up ] Definitive disposition and diagnosis as appropriate pending reevaluation and review of above. Onset: Gradual Generalized Pain Score (Numeric/FACES): 6 - Related Data Allergies Allergy/AdvReac Type Severity Reaction Status Date / Time codeine Allergy Hives Verified 03/25/17 18:35 shellfish derived Allergy Hives Verified 03/25/17 18:35 Home Meds: Home Meds Metoprolol Tartrate 75 mg PO BID 04/23/15 [History] Warfarin Sodium [Jantoven] 7.5 mg PO DAILY 05/06/15 [History] Lisinopril 1 tab PO DAILY 11/20/16 [History] Allopurinol [Zyloprim] 100 mg PO DAILY 03/25/17 [History] Furosemide 60 mg PO BID 03/25/17 [History] Past Medical History Other HEENT History: wears glasses Cardiovascular History: Reports: Afib, Heart Failure Psychiatric History: Reports: None Dermatologic History: Reports: None - Infectious Disease History Infectious Disease History: Reports: Chicken Pox - Past Surgical History GI Surgical History: Reports: Appendectomy Musculoskeletal Surgical History: Reports: Other (See Below) Other Musculoskeletal Surgeries/Procedures:: knee surgery 2014 Social & Family History - Family History Family Medical History: Noncontributory - Tobacco Use Smoking Status *Q: Never Smoker Second Hand Smoke Exposure: No - Caffeine Use Caffeine Use: Reports: None - Recreational Drug Use Recreational Drug Use: No Drug Use in Last 12 Months: No ED ROS GENERAL - Review of Systems Review Of Systems: ROS reveals no pertinent complaints other than HPI. ED EXAM, GENERAL - Physical Exam Exam: See Below (See dictation) EKG INTERPRETATION EKG Date: 09/14/17 Rhythm: A-Fib Course - Vital Signs Last Recorded V/S: Last Vital Signs Temp 36.9 C 03/25/17 18:30 Pulse 101 H 03/25/17 21:25 Resp 20 03/25/17 21:25 BP 141/85 H 03/25/17 21:25 Pulse Ox 95 03/25/17 21:25 - Orders/Labs/Meds Orders: Active Orders 24 hr Category Date Time Status EKG Documentation Completion [RC] STAT Care 03/25/17 21:01 Active RT Aerosol Therapy [RC] ASDIRECTED Care 03/25/17 20:51 Active Chest 2V [CR] Stat Exams 03/25/17 19:08 Taken CULTURE URINE [RM] Stat Lab 03/25/17 20:38 Received Cefdinir [Omnicef] Med 03/25/17 21:29 Once 300 mg PO ONETIME ONE Sodium Chloride 0.9% [Saline Flush] Med 03/25/17 19:08 Active 10 ml FLUSH ASDIRECTED PRN Sodium Chloride 0.9% [Saline Flush] Med 03/25/17 19:08 Active 2.5 ml FLUSH ASDIRECTED PRN Saline Lock Insert [OM.PC] Stat Oth 03/25/17 19:08 Ordered Medication Orders Sodium Chloride (Saline Flush) 10 ml FLUSH ASDIRECTED PRN PRN Reason: Keep Vein Open Sodium Chloride (Saline Flush) 2.5 ml FLUSH ASDIRECTED PRN PRN Reason: Keep Vein Open Labs: Laboratory Tests 03/25/17 03/25/17 03/25/17 Range/Units 19:14 19:14 19:14 WBC 11.59 H (4.0-11.0) K/uL RBC 4.61 (4.50-5.90) M/uL Hgb 14.6 (13.0-17.0) g/dL Hct 43.6 (38.0-50.0) % MCV 94.6 (80.0-98.0) fL MCH 31.7 (27.0-32.0) pg MCHC 33.5 (31.0-37.0) g/dL RDW Std Deviation 48.7 (28.0-62.0) fl RDW Coeff of Marli 14 (11.0-15.0) % Plt Count 235 (150-400) K/uL MPV 10.20 (7.40-12.00) fL Neut % (Auto) 72.0 (48.0-80.0) % Lymph % (Auto) 15.2 L (16.0-40.0) % [place] % (Auto) 11.7 (0.0-15.0) % Eos % (Auto) 0.8 (0.0-7.0) % Baso % (Auto) 0.3 (0.0-1.5) % Neut # (Auto) 8.4 H (1.4-5.7) K/uL Lymph # (Auto) 1.8 (0.6-2.4) K/uL [place] # (Auto) 1.4 H (0.0-0.8) K/uL Eos # (Auto) 0.1 (0.0-0.7) K/uL Baso # (Auto) 0.0 (0.0-0.1) K/uL Nucleated RBC % 0.0 /100WBC Nucleated RBCs # 0 K/uL Sodium 142 (136-146) mmol/L Potassium 3.8 (3.5-5.1) mmol/L Chloride 105 (98-110) mmol/L Carbon Dioxide 26 (21-31) mmol/L BUN 22 (6.0-23.0) mg/dL Creatinine 1.2 (0.6-1.5) mg/dL Est Cr Clr Drug Dosing 72.75 mL/min Estimated GFR (MDRD) > 60.0 ml/min Glucose 92 (60-110) mg/dL Calcium 9.5 (8.8-10.8) mg/dL Total Bilirubin 1.5 (0.1-1.5) mg/dL AST 17 (5-40) IU/L ALT 17 (8-54) IU/L Alkaline Phosphatase 115 (40-150) B-Natriuretic Peptide 217 H (<100) PG/ML Total Protein 7.8 (6.0-8.0) g/dL Albumin 3.8 (3.5-5.0) g/dL Globulin 4.0 H (2.0-3.5) g/dL Albumin/Globulin Ratio 1.0 L (1.3-2.8) Urine Color Urine Appearance Urine pH (5.0-8.0) Ur Specific [place] (1.001-1.035) Urine Protein (NEGATIVE) mg/dL Urine Glucose (UA) (NEGATIVE) mg/dL Urine Ketones (NEGATIVE) mg/dL Urine Occult Blood (NEGATIVE) Urine Nitrite (NEGATIVE) Urine Bilirubin (NEGATIVE) Urine Ictotest Urine Urobilinogen (<2.0) EU/dL Ur Leukocyte Esterase (NEGATIVE) Urine RBC (0-2/HPF) Urine WBC (0-5/HPF) Ur Epithelial Cells (NONE-FEW) Amorphous Sediment (NEGATIVE) Urine Bacteria (NEGATIVE) 03/25/17 Range/Units 20:38 WBC (4.0-11.0) K/uL RBC (4.50-5.90) M/uL Hgb (13.0-17.0) g/dL Hct (38.0-50.0) % MCV (80.0-98.0) fL MCH (27.0-32.0) pg MCHC (31.0-37.0) g/dL RDW Std Deviation (28.0-62.0) fl RDW Coeff of Marli (11.0-15.0) % Plt Count (150-400) K/uL MPV (7.40-12.00) fL Neut % (Auto) (48.0-80.0) % Lymph % (Auto) (16.0-40.0) % [place] % (Auto) (0.0-15.0) % Eos % (Auto) (0.0-7.0) % Baso % (Auto) (0.0-1.5) % Neut # (Auto) (1.4-5.7) K/uL Lymph # (Auto) (0.6-2.4) K/uL [place] # (Auto) (0.0-0.8) K/uL Eos # (Auto) (0.0-0.7) K/uL Baso # (Auto) (0.0-0.1) K/uL Nucleated RBC % /100WBC Nucleated RBCs # K/uL Sodium (136-146) mmol/L Potassium (3.5-5.1) mmol/L Chloride (98-110) mmol/L Carbon Dioxide (21-31) mmol/L BUN (6.0-23.0) mg/dL Creatinine (0.6-1.5) mg/dL Est Cr Clr Drug Dosing mL/min Estimated GFR (MDRD) ml/min Glucose (60-110) mg/dL Calcium (8.8-10.8) mg/dL Total Bilirubin (0.1-1.5) mg/dL AST (5-40) IU/L ALT (8-54) IU/L Alkaline Phosphatase (40-150) B-Natriuretic Peptide (<100) PG/ML Total Protein (6.0-8.0) g/dL Albumin (3.5-5.0) g/dL Globulin (2.0-3.5) g/dL Albumin/Globulin Ratio (1.3-2.8) Urine Color YELLOW Urine Appearance SLT CLOUDY Urine pH 5.5 (5.0-8.0) Ur Specific [place] 1.025 (1.001-1.035) Urine Protein 30 (NEGATIVE) mg/dL Urine Glucose (UA) NEGATIVE (NEGATIVE) mg/dL Urine Ketones 15 H (NEGATIVE) mg/dL Urine Occult Blood LARGE H (NEGATIVE) Urine Nitrite NEGATIVE (NEGATIVE) Urine Bilirubin MODERATE H (NEGATIVE) Urine Ictotest NEGATIVE Urine Urobilinogen 0.2 (<2.0) EU/dL Ur Leukocyte Esterase NEGATIVE (NEGATIVE) Urine RBC 75-100 (0-2/HPF) Urine WBC 2-5 (0-5/HPF) Ur Epithelial Cells RARE (NONE-FEW) Amorphous Sediment LIGHT (NEGATIVE) Urine Bacteria FEW (NEGATIVE) Meds: Medications Generic Name Dose Route Start Last Admin Trade Name Freq PRN Reason Stop Dose Admin Sodium Chloride 10 ml 03/25/17 19:08 Saline Flush FLUSH ASDIRECTED PRN Keep Vein Open Sodium Chloride 2.5 ml 03/25/17 19:08 Saline Flush FLUSH ASDIRECTED PRN Keep Vein Open Discontinued Medications Generic Name Dose Route Start Last Admin Trade Name Freq PRN Reason Stop Dose Admin Albuterol/Ipratropium 3 ml 03/25/17 20:51 03/25/17 21:00 Duoneb 3.0-0.5 Mg/3 Ml NEB 03/25/17 20:52 3 ml ONETIME ONE Administration Prednisolone 30 mg 03/25/17 21:13 03/25/17 21:18 Orapred 15 Mg/5ml Soln PO 03/25/17 21:14 30 mg ONETIME ONE Administration Departure - Departure Time of Disposition: 21:41 Disposition: Home, Self-Care 01 Condition: Good Clinical Impression: Atrial fibrillation with RVR Acute bronchiolitis Qualifiers: Bronchiolitis organism: unspecified organism Qualified Code(s): J21.9 - Acute bronchiolitis, unspecified - Discharge Information Instructions: Acute Bronchitis, [id number] Referrals: Philipp Butler DO [Primary Care Provider] - Forms: ED Department Discharge Additional Instructions: The following information is given to patients seen in the emergency department who are being discharged to home. This information is to outline your options for follow-up care. We provide all patients seen in our emergency department with a follow-up referral. The need for follow-up, as well as the timing and circumstances, are variable depending upon the specifics of your emergency department visit. If you don't have a primary care physician on staff, we will provide you with a referral. We always advise you to contact your personal physician following an emergency department visit to inform them of the circumstance of the visit and for follow-up with them and/or the need for any referrals to a consulting specialist. The emergency department will also refer you to a specialist when appropriate. This referral assures that you have the opportunity for followup care with a specialist. All of these measure are taken in an effort to provide you with optimal care, which includes your followup. Under all circumstances we always encourage you to contact your private physician who remains a resource for coordinating your care. When calling for followup care, please make the office aware that this follow-up is from your recent emergency room visit. If for any reason you are refused follow-up, please contact the [facility] emergency department at and asked to speak to the emergency department charge nurse. You were given oral antibiotic in the emergency department Prescriptions were written for continuing this medication and for a cough capsule Follow-up with Dr. Butler tomorrow [facility] - Internal Medicine [address] [place] [id number] - My Orders Last 24 Hours: My Active Orders 03/25/17 19:08 Chest 2V [CR] Stat Sodium Chloride 0.9% [Saline Flush] 10 ml FLUSH ASDIRECTED PRN Sodium Chloride 0.9% [Saline Flush] 2.5 ml FLUSH ASDIRECTED PRN Saline Lock Insert [OM.PC] Stat 03/25/17 20:38 CULTURE URINE [RM] Stat 03/25/17 20:51 RT Aerosol Therapy [RC] ASDIRECTED 03/25/17 21:01 EKG Documentation Completion [RC] STAT 03/25/17 21:29 Cefdinir [Omnicef] 300 mg PO ONETIME ONE - Assessment/Plan Last 24 Hours: My Active Orders 03/25/17 19:08 Chest 2V [CR] Stat Sodium Chloride 0.9% [Saline Flush] 10 ml FLUSH ASDIRECTED PRN Sodium Chloride 0.9% [Saline Flush] 2.5 ml FLUSH ASDIRECTED PRN Saline Lock Insert [OM.PC] Stat 03/25/17 20:38 CULTURE URINE [RM] Stat 03/25/17 20:51 RT Aerosol Therapy [RC] ASDIRECTED 03/25/17 21:01 EKG Documentation Completion [RC] STAT 03/25/17 21:29 Cefdinir [Omnicef] 300 mg PO ONETIME ONE
[2017-03-25] MEDS ORDERED: Sodium Chloride 0.9% 10 ML Syringe FLUSH PRN (19:08)
[2017-03-25] MEDS ORDERED: Sodium Chloride 0.9% 2.5 ML Syringe FLUSH PRN (19:08)
[2017-03-25 19:39] LABS: CHLORIDE,CL 105 mmol/L (98-110); SODIUM,NA 142 mmol/L (136-146)
[2017-03-25] MEDS ORDERED: Albuterol/Ipratropium 3.0-0.5 MG/3 ML Neb Soln NEB ONE (20:51)
[2017-03-25] MEDS ORDERED: prednisoLONE Soln 15 MG/5 ML UD Cup PO ONE (21:13)
[2017-03-25 21:26] VITALS: BP 141/85
[2017-03-25] MEDS ORDERED: Cefdinir 300 MG Cap PO ONE (21:29)
--- NOTE | 2017-03-26 10:56 | CR ---
EXAM DATE: 03/25/17 PATIENT'S AGE: 61 Patient: PRAVIN HAIRSTON Facility: [place], [place] Site . Site : 1955 Study: XRay Chest [id number]/14/2017 7:45:32 PM Ordering Physician: Doctor Chaney Final Report: INDICATION: Chest pain, shortness of breath. TECHNIQUE: Chest radiograph 2 views COMPARISON: 11/20/2016. FINDINGS: Heart remains mildly enlarged. Central vascular congestion. With grossly unchanged lung markings. No pneumothorax or pleural effusion. Lungs are mildly hyperinflated with relative lucency to the upper lung zones. Likely flattening of hemidiaphragms with prominent retrosternal airspace on lateral view. IMPRESSION: 1. COPD with mild cardiomegaly. No acute abnormality or significant change from 11/20/2016. Dictated by Ritesh Wolf MD @ 03/25/2017 8:39:48 PM Dictated by: Ritesh Wolf MD @ 03/25/2017 20:39:57 (Electronic Signature) Report Signed by Proxy. [facility]ITAL[facility]
== END 2017-03-25 22:00 | disposition home or self-care (01) ==
LOC: MW.ED 18:22
DX: J44.0 Chronic obstructive pulmonary disease with (acute) lower respiratory infection (principal); J20.9 Acute bronchitis, unspecified; I48.91 Unspecified atrial fibrillation; I50.9 Heart failure, unspecified; Z88.5 Allergy status to narcotic agent; Z91.013 Allergy to seafood; Z79.01 Long term (current) use of anticoagulants; Z79.899 Other long term (current) drug therapy; Z90.49 Acquired absence of other specified parts of digestive tract
CPT/HCPCS: 36415; 71020; 80053; 81001; 83880; 85025; 87086; 93005; 94664; 99285; A9270; 99283

== ENCOUNTER 2017-07-27 20:51 | Emergency (ER) | payer BC, MEDICAID, OTHER ==
--- NOTE | 2017-07-27 21:08 | EDM.PDOC ---
ED HPI GENERAL MEDICAL PROBLEM - General Chief Complaint: Respiratory Problem Stated Complaint: COUGH Time Seen by Provider: 07/27/17 21:02 - History of Present Illness INITIAL COMMENTS - FREE TEXT/NARRATIVE: HISTORY AND PHYSICAL: History of present illness: Patient 61-year-old male presents with concern of left ear pain he also said a chronic intermittent cough over last week or 2. He denies fever chills nausea and shortness of breath chest pain or other concern Review of systems: As per history of present illness and below otherwise all systems reviewed and negative. Past medical history: As per history of present illness and as reviewed below otherwise noncontributory. Surgical history: As per history of present illness and as reviewed below otherwise noncontributory. Social history: No reported history of drug or alcohol abuse. Family history: As per history of present illness and as reviewed below otherwise noncontributory. Physical exam: HEENT: Atraumatic, normocephalic, pupils reactive, negative for conjunctival pallor or scleral icterus, mucous membranes moist, throat clear, neck supple, nontender, trachea midline. Left TM is injected with absent light reflex Lungs: Clear to auscultation, breath sounds equal bilaterally, chest nontender. Heart: S1S2, regular, negative for clicks, rubs, or JVD. Abdomen: Soft, nondistended, nontender. Negative for masses or hepatosplenomegaly. Negative for costovertebral tenderness. Pelvis: Stable nontender. Genitourinary: Deferred. Rectal: Deferred. Extremities: Atraumatic, negative for cords or calf pain. Neurovascular unremarkable. Neuro: Awake, alert, oriented. Cranial nerves II through XII unremarkable. Cerebellum unremarkable. Motor and sensory unremarkable throughout. Exam nonfocal. Diagnostics: Deferred Therapeutics: None Impression: #1 left otitis media #2 tracheobronchitis Definitive disposition and diagnosis as appropriate pending reevaluation and review of above. - Related Data Allergies Allergy/AdvReac Type Severity Reaction Status Date / Time codeine Allergy Hives Verified 07/27/17 20:58 shellfish derived Allergy Hives Verified 07/27/17 20:58 Home Meds: Home Meds Metoprolol Tartrate 100 mg PO BID 04/23/15 [History] Warfarin Sodium [Jantoven] 7.5 mg PO DAILY 05/06/15 [History] Lisinopril 1 tab PO DAILY 11/20/16 [History] Allopurinol [Zyloprim] 100 mg PO DAILY 03/25/17 [History] Furosemide 60 mg PO BID 03/25/17 [History] Digoxin 250 mcg PO DAILY 07/27/17 [History] Past Medical History Other HEENT History: wears glasses Cardiovascular History: Reports: Afib, Heart Failure Psychiatric History: Reports: None Dermatologic History: Reports: None - Infectious Disease History Infectious Disease History: Reports: Chicken Pox - Past Surgical History GI Surgical History: Reports: Appendectomy Musculoskeletal Surgical History: Reports: Other (See Below) Other Musculoskeletal Surgeries/Procedures:: knee surgery 2014 Social & Family History - Family History Family Medical History: Noncontributory - Tobacco Use Smoking Status *Q: Never Smoker Second Hand Smoke Exposure: No - Caffeine Use Caffeine Use: Reports: None - Recreational Drug Use Recreational Drug Use: No Drug Use in Last 12 Months: No ED ROS GENERAL - Review of Systems Review Of Systems: ROS reveals no pertinent complaints other than HPI. ED EXAM, GENERAL - Physical Exam Exam: See Below (See dictation) Departure - Departure Time of Disposition: 21:07 Disposition: Home, Self-Care 01 Condition: Good Clinical Impression: Otitis media, Tracheobronchitis - Discharge Information Referrals: Philipp Butler DO [Primary Care Provider] - Additional Instructions: The following information is given to patients seen in the emergency department who are being discharged to home. This information is to outline your options for follow-up care. We provide all patients seen in our emergency department with a follow-up referral. The need for follow-up, as well as the timing and circumstances, are variable depending upon the specifics of your emergency department visit. If you don't have a primary care physician on staff, we will provide you with a referral. We always advise you to contact your personal physician following an emergency department visit to inform them of the circumstance of the visit and for follow-up with them and/or the need for any referrals to a consulting specialist. The emergency department will also refer you to a specialist when appropriate. This referral assures that you have the opportunity for followup care with a specialist. All of these measure are taken in an effort to provide you with optimal care, which includes your followup. Under all circumstances we always encourage you to contact your private physician who remains a resource for coordinating your care. When calling for followup care, please make the office aware that this follow-up is from your recent emergency room visit. If for any reason you are refused follow-up, please contact the [facility] emergency department at and asked to speak to the emergency department charge nurse. Augmentin as prescribed follow-up primary medical doctor 1-2 days return as needed as discussed
[2017-07-27 22:16] VITALS: BP 132/88
== END 2017-07-27 21:36 | disposition home or self-care (01) ==
LOC: MW.ED 20:51
DX: H66.92 Otitis media, unspecified, left ear (principal); J40 Bronchitis, not specified as acute or chronic; Z88.5 Allergy status to narcotic agent; Z91.013 Allergy to seafood; Z79.01 Long term (current) use of anticoagulants; Z79.899 Other long term (current) drug therapy
CPT/HCPCS: 99282; 99283

== ENCOUNTER 2018-01-03 04:57 | Emergency (ER) | payer BC ==
--- NOTE | 2018-01-03 05:29 | EDM.PDOC ---
ED HPI GENERAL MEDICAL PROBLEM - General Chief Complaint: General Stated Complaint: POSSIBLE INFECTION; PAIN IN LEFT SIDE OF FACE Time Seen by Provider: 01/03/18 05:06 - History of Present Illness INITIAL COMMENTS - FREE TEXT/NARRATIVE: HISTORY AND PHYSICAL: History of present illness: The patient is a 62 year-old male who follows in our clinic and has a history of A. fib with RVR pacemaker placement hypertension and is on Coumadin therapy and has his INR checked on a regular basis here with our clinic, presents morning with a 2 day history of pressure and pain to the left side of his face associated with subjective fevers runny nose sinus congestion occasional cough and malaise. He's had no vomiting or diarrhea no abdominal pain no chest pain or shortness of breath. He is concerned because he has a pacemaker and was told that any time he had an infection he should get checked out. He is use over-the- counter Tylenol and ibuprofen for the pain but no nasal Decongestants and no antihistamines. Review of systems: As per history of present illness and below otherwise all systems reviewed and negative. Past medical history: As per history of present illness and as reviewed below otherwise noncontributory. Surgical history: As per history of present illness and as reviewed below otherwise noncontributory. Social history: No reported history of drug or alcohol abuse. Family history: As per history of present illness and as reviewed below otherwise noncontributory. Physical exam: General: Well-developed obese male who is nontoxic and vital signs were noted by me. His voice is not hoarse or more falls and he is not breathless. He has only minimal sinus quality to his voice. HEENT: Atraumatic, normocephalic, pupils reactive, negative for conjunctival pallor or scleral icterus, mucous membranes moist, throat clear, neck supple, nontender, trachea midline. There is no cervical adenopathy or nuchal rigidity and the nasal turbinates are mildly boggy bilaterally left greater than right. There is maxillary sinus tenderness with palpation more on the left. TMs are dulled bilaterally Lungs: Clear to auscultation, breath sounds equal bilaterally, chest nontender. Heart: S1S2, regular rate and rhythm no overt murmurs Abdomen: Soft, nondistended, nontender. NABS Pelvis: Genitourinary: Deferred. Rectal: Deferred. Extremities: Atraumatic, full range of motion without any visible defects. Neurovascular unremarkable. Neuro: Awake, alert, oriented. Cranial nerves II through XII unremarkable. Cerebellum unremarkable. Motor and sensory unremarkable throughout. Exam nonfocal. Diagnostics: [] Therapeutics: [] I discussed with the patient [id number] medications to use for his symptomatology including Claritin or Ronit, Flonase, coolmist humidifier and body positioning with sleep. I will give him Augmentin and have advised him to follow-up with his provider in the clinic. He overall seems somewhat frustrated as he is having this discomfort and I told him that he can continue to use over- the-counter meds and to promote nasal drainage and start his antibiotics and will improve over several days Impression: Sinusitis Definitive disposition and diagnosis as appropriate pending reevaluation and review of above. face Pain Score (Numeric/FACES): 9 - Related Data Allergies Allergy/AdvReac Type Severity Reaction Status Date / Time codeine Allergy Hives Verified 01/03/18 05:10 shellfish derived Allergy Hives Verified 01/03/18 05:10 Home Meds: Home Meds Metoprolol Tartrate 100 mg PO BID 04/23/15 [History] Warfarin Sodium [Jantoven] 7.5 mg PO DAILY 05/06/15 [History] Lisinopril 1 tab PO DAILY 11/20/16 [History] Allopurinol [Zyloprim] 100 mg PO DAILY 03/25/17 [History] Furosemide 60 mg PO BID 03/25/17 [History] Digoxin 250 mcg PO DAILY 07/27/17 [History] Past Medical History - Past Health History Medical/Surgical History: Denies Medical/Surgical History HEENT History: Reports: Impaired Vision Other HEENT History: wears glasses Cardiovascular History: Reports: Afib, Heart Failure, Hypertension, Pacemaker, Other (See Below) Other Cardiovascular History: CHF Genitourinary History: Reports: Renal Calculus Psychiatric History: Reports: None Dermatologic History: Reports: None - Infectious Disease History Infectious Disease History: Reports: Chicken Pox - Past Surgical History GI Surgical History: Reports: Appendectomy Musculoskeletal Surgical History: Reports: Other (See Below) Other Musculoskeletal Surgeries/Procedures:: knee surgery 2014 Social & Family History - Family History Family Medical History: Noncontributory - Tobacco Use Smoking Status *Q: Never Smoker - Caffeine Use Caffeine Use: Reports: None - Recreational Drug Use Recreational Drug Use: No ED ROS GENERAL - Review of Systems Review Of Systems: ROS reveals no pertinent complaints other than HPI. ED EXAM, GENERAL - Physical Exam Exam: See Below (See dictation) Course - Vital Signs Last Recorded V/S: Last Vital Signs Temp 36.6 C 01/03/18 04:57 Pulse 85 01/03/18 04:57 Resp 18 01/03/18 04:57 BP 121/79 01/03/18 04:57 Pulse Ox 94 L 01/03/18 04:57 Departure - Departure Time of Disposition: :27 Disposition: Home, Self-Care 01 Condition: Good Clinical Impression: Sinusitis Qualifiers: Sinusitis location: maxillary Chronicity: acute Recurrence: not specified as recurrent Qualified Code(s): J01.00 - Acute maxillary sinusitis, unspecified - Discharge Information Referrals: Eugenio Steven MD [Primary Care Provider] - Additional Instructions: The following information is given to patients seen in the emergency department who are being discharged to home. This information is to outline your options for follow-up care. We provide all patients seen in our emergency department with a follow-up referral. The need for follow-up, as well as the timing and circumstances, are variable depending upon the specifics of your emergency department visit. If you don't have a primary care physician on staff, we will provide you with a referral. We always advise you to contact your personal physician following an emergency department visit to inform them of the circumstance of the visit and for follow-up with them and/or the need for any referrals to a consulting specialist. The emergency department will also refer you to a specialist when appropriate. This referral assures that you have the opportunity for followup care with a specialist. All of these measure are taken in an effort to provide you with optimal care, which includes your followup. Under all circumstances we always encourage you to contact your private physician who remains a resource for coordinating your care. When calling for followup care, please make the office aware that this follow-up is from your recent emergency room visit. If for any reason you are refused follow-up, please contact the [facility] emergency department at and ask to speak to the emergency department charge nurse. [facility] [address] [place] [address] Please use [id number] Claritin or Ronit to help dry sinus fluid and use Flonase to open the nasal passages and promote drainage forward. Sleep on 2-3 pillows and use cool mist humidifier at sleep times use soothe the airways and promote drainage. Use [id number] Tylenol or ibuprofen for fever and pain. Please take the antibiotics as directed until they're finished. Call and schedule a follow-up appointment with your provider in the clinic and return to ER as needed and as discussed
[2018-01-03 05:42] VITALS: BP 120/78
== END 2018-01-03 05:35 | disposition home or self-care (01) ==
LOC: MW.ED 04:57
DX: J01.00 Acute maxillary sinusitis, unspecified (principal); I11.0 Hypertensive heart disease with heart failure; I50.9 Heart failure, unspecified; I48.91 Unspecified atrial fibrillation; Z95.0 Presence of cardiac pacemaker; Z79.01 Long term (current) use of anticoagulants; Z79.899 Other long term (current) drug therapy; Z88.5 Allergy status to narcotic agent; Z91.013 Allergy to seafood
CPT/HCPCS: 99282; 99283

== ENCOUNTER 2019-08-29 02:07 | Emergency (ER) | payer MEDICARE ==
[2019-08-29] MEDS ORDERED: Bacitracin Oint 1 GM U/D Packet ONE (02:29)
[2019-08-29] MEDS ORDERED: Bacitracin Oint 1 GM U/D Packet TOP ONE (02:34)
--- NOTE | 2019-08-29 02:36 | EDM.PDOC ---
ED HPI GENERAL MEDICAL PROBLEM - General Chief Complaint: Laceration Stated Complaint: CUT ON RT LEG LEAKING Time Seen by Provider: 08/29/19 02:30 Source of Information: Reports: Patient - History of Present Illness INITIAL COMMENTS - FREE TEXT/NARRATIVE: The patient is a 64-year-old male who presents to the ER secondary to Lacerations on his right leg. He states that his cat accidentally lacerated his right leg and it has been bleeding. No other complaints. R leg Pain Score (Numeric/FACES): 2 - Related Data Allergies Allergy/AdvReac Type Severity Reaction Status Date / Time codeine Allergy Hives Verified 08/29/19 02:27 shellfish derived Allergy Hives Verified 08/29/19 02:27 Home Meds: Home Meds Metoprolol Tartrate 100 mg PO BID 04/23/15 [History] Warfarin Sodium [Jantoven] 7.5 mg PO DAILY 05/06/15 [History] Lisinopril 1 tab PO DAILY 11/20/16 [History] Allopurinol [Zyloprim] 100 mg PO DAILY 03/25/17 [History] Furosemide 60 mg PO BID 03/25/17 [History] Digoxin 250 mcg PO DAILY 07/27/17 [History] Past Medical History - Past Health History Medical/Surgical History: Denies Medical/Surgical History HEENT History: Reports: Impaired Vision Other HEENT History: wears glasses Cardiovascular History: Reports: Afib, Heart Failure, Hypertension, Pacemaker, Other (See Below) Other Cardiovascular History: CHF Genitourinary History: Reports: Renal Calculus Psychiatric History: Reports: None Dermatologic History: Reports: None - Infectious Disease History Infectious Disease History: Reports: Chicken Pox - Past Surgical History GI Surgical History: Reports: Appendectomy Musculoskeletal Surgical History: Reports: Other (See Below) Other Musculoskeletal Surgeries/Procedures:: knee surgery 2014 Social & Family History - Family History Family Medical History: Noncontributory - Caffeine Use Caffeine Use: Reports: None ED ROS GENERAL - Review of Systems Review Of Systems: See Below (Other for right lower extremity bleeding and lacerations) ED EXAM, SKIN/RASH Exam: See Below Text/Narrative:: Constitutional: No acute distress, Non-toxic appearance. 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 Back: FROM Integument: Warm, Dry, Color is ethnicity appropriate, No rash. Neuro: Alert, Awake, No focal deficits noted Psych: Affect, Judgement, mood normal Course - Vital Signs Text/Narrative:: The patient's wounds are all superficial and can be taken care of conservatively. The one area on the proximal aspect with the almost arterial type of bleed I do not believe is arterial as no arteries are located on this part of our anatomy. However, the patient is large, with a lot of chronic subcutaneous edema and given the varicosities location, I believe that this is causing pressure with a localized bleed that he is having trouble controlling. We placed a Surgicel dressing over it, and then covered it with dry gauze and a compression bandage along with antibiotic ointment over the other wounds. Stable for discharge and conservative therapy. Last Recorded V/S: Last Vital Signs Temp 36.2 C 08/29/19 02:16 Pulse 81 08/29/19 02:50 Resp 18 08/29/19 02:50 BP 126/76 08/29/19 02:50 Pulse Ox 93 L 08/29/19 02:50 - Orders/Labs/Meds Meds: Medications Discontinued Medications Generic Name Dose Route Start Last Admin Trade Name Joesq PRN Reason Stop Dose Admin Bacitracin Confirm 08/29/19 02:29 08/29/19 02:35 Bacitracin Oint 1 Gm Administered 08/29/19 02:30 Not Given Dose 1 dose .ROUTE .STK-MED ONE Bacitracin 1 dose 08/29/19 02:34 08/29/19 02:36 Bacitracin Oint 1 Gm TOP 08/29/19 02:35 1 dose ONETIME ONE Administration Departure - Departure Time of Disposition: 02:45 Disposition: Home, Self-Care 01 Condition: Good Clinical Impression: Cat scratch of right lower leg - Discharge Information Instructions: Skin Tear Care, [id number] Referrals: Kennedi Moody MD [Primary Care Provider] - Forms: ED Department Discharge Additional Instructions: Keep the dressing on your wound for the next 24 hours. Afterward, you may recheck by taking off the Kenny bandage, and you may change the dry gauze but do not pull off the Surgicel (this should be clotted and stuck to your leg ) Change the dressing twice daily and/or when soiled. The Surgicel should fall off within about a week You may wash the wounds with regular soap and water (except the Surgicel ) Return for any concerns Sepsis Event Note - Evaluation Sepsis Screening Result: No Definite Risk - Focused Exam Vital Signs: Vital Signs Temp Pulse Resp BP Pulse Ox 08/29/19 02:50 81 18 126/76 93 L 08/29/19 02:16 36.2 C 82 21 H 129/76 94 L Date Exam was Performed: 08/29/19 Time Exam was Performed: 05:27
[2019-08-29 02:52] VITALS: BP 126/76; PULSE 81
== END 2019-08-29 02:50 | disposition home or self-care (01) ==
LOC: MW.ED 02:07
DX: S81.811A Laceration without foreign body, right lower leg, initial encounter (principal); Z88.5 Allergy status to narcotic agent; Z91.013 Allergy to seafood; Z79.01 Long term (current) use of anticoagulants; X58.XXXA Exposure to other specified factors, initial encounter
CPT/HCPCS: 99282